=== PATIENT | male | born 1965 | race Caucasian/White ===

== ENCOUNTER 2019-03-15 11:57 | Day surgery (SDC) | payer BC ==
[~2019-03-15] VITALS: Ht 177.8 cm; Wt 106.7 kg
[2019-03-15] MEDS ORDERED: GABA100 PO (12:19)
[2019-03-15] MEDS ORDERED: TAMS.4ER PO (12:20)
--- NOTE | 2019-03-15 12:29 | NUR ---
03/15/19 1229 Senia Quinones V PT RESTING IN RECLINER, VSS, PT REPORTS PAIN 6/10 IN LOWER BACK. NO INTERVENTIONS AT THIS TIME.
== END 2019-03-15 13:19 | disposition home or self-care (01) ==
LOC: ORSCSDS 11:57
PROVIDERS: Anesthesiology
PROC: 3E0R33Z Introduction of Anti-inflammatory into Spinal Canal, Percutaneous Approach (ICD-10-PCS; principal; 2019-03-15 13:00)
DX: M51.16 Intervertebral disc disorders with radiculopathy, lumbar region (principal); Z79.899 Other long term (current) drug therapy
CPT/HCPCS: J1040